=== PATIENT | female | born 1990 | race Caucasian/White ===

== ENCOUNTER → 2017-06-08 | Outpatient (CLI) | payer BC, OTHER, MEDICAID ==
--- NOTE | 2017-06-08 13:53 | Diagnostic Imaging Report ---
INDICATION: survey. TECHNIQUE: Multiple real-time grayscale images were obtained over the gravid uterus. COMPARISON: None. FINDINGS: There is a single live fetus in a variable presentation. The placenta is posterior. The amniotic fluid volume is normal. heart rate was recorded at 138 beats per minute. Cervical length is 4.4 cm. The kidneys, bladder, and stomach are unremarkable. Intracranial structures are unremarkable. There is a four-chamber heart. There is a three-vessel cord with normal cord insertion. The spine is unremarkable. Biometrical measurements are as follows: Biparietal 4.89 cm, age 20 weeks 6 days. Head circumference 18.41 cm, age 20 weeks 6 days. Abdominal circumference 15.47 cm, age 20 weeks 5 days. Femur length 3.15 cm, age 19 weeks 6 days. Sonographic estimate age: 20 weeks 4 days. Sonographic estimated date of delivery: 10/22/2017. Estimated Weight: 346 gm (+/- 51 gm). LMP percentile: 15%. heart rate: 138 beats per minute. number: 1 of 1. IMPRESSION: Single live IUP at approximately 20 weeks 4 days gestational age. The estimated date of confinement sonographically is 10/22/2017. Dictated by: Dictated on workstation # [id number]
== END ==
LOC: RAD 11:20
PROVIDERS: ATTEND Obstetrics & Gynecology
DX: Z34.92 Encounter for supervision of normal pregnancy, unspecified, second trimester (principal); Z3A.20 20 weeks gestation of pregnancy
CPT/HCPCS: 76805

== ENCOUNTER 2017-10-02 14:24 | Outpatient (CLI) | payer BC, OTHER, MEDICAID ==
[~2017-10-02] VITALS: Ht 157.5 cm; Wt 76.2 kg
[2017-10-02 14:30] VITALS: BP 103/63
[2017-10-02 15:00] VITALS: BP 101/55
[2017-10-02] MEDS ORDERED: PREN1TAB86 PO (15:15)
[2017-10-02 15:30] VITALS: BP 99/59
[2017-10-02 16:00] VITALS: BP 103/58
[2017-10-03] MEDS ORDERED: DIBU30OI TOP (01:38)
[2017-10-03] MEDS ORDERED: Benzocaine/Menthol TP (01:38)
[2017-10-03] MEDS ORDERED: IBUP-844 PO (01:38)
[2017-10-03] MEDS ORDERED: ACHD5005 PO (01:38)
[2017-10-03] MEDS ORDERED: FERR325T18 PO (01:38)
[2017-10-03] MEDS ORDERED: DOCU100C37 PO (01:38)
--- NOTE | 2017-10-05 13:50 | Physician Query-Final Dx ---
ROSAURA TRIMBLE 10/05/17 1350: Clinic Account Progress/Dx Physician Query: Please give diagnosis Date of Service Oct 02, 2017 at 14:24 CASSANDRA CURTIS DO 10/06/17 1732: Clinic Account Progress/Dx DIAGNOSIS: Diagnosis 37 week IUP Prolonged latent phase labor ROSAURA TRIMBLE Oct 05, 2017 13:50 CASSANDRA CURTIS DO Oct 06, 2017 17:32
== END 2017-10-02 16:10 | disposition home or self-care (01) ==
LOC: WSo 14:24 → LDRP 14:25 → WSo 16:10
PROVIDERS: ATTEND Obstetrics & Gynecology
DX: O62.0 Primary inadequate contractions (principal); Z3A.37 37 weeks gestation of pregnancy
CPT/HCPCS: 99213

== ENCOUNTER 2017-10-03 00:09 | Inpatient (IN) | payer BC, MEDICAID, OTHER ==
[~2017-10-03] VITALS: Ht 157.5 cm; Wt 77.1 kg
[2017-10-03] VITALS (10 sets, daily range): BP systolic 90–119; BP diastolic 55–64
[~2017-10-03 00:09] MED LIST: PREN1TAB86 PO
[2017-10-03] MEDS ORDERED: D5 LR IV SOLUTION 1,000 ML IV SCH (00:27)
[2017-10-03] MEDS ORDERED: LIDOCAINE/EPI 2% 1:200,00 (XYLOCAINE) 10 ML VIAL ONE (00:39)
[2017-10-03] MEDS ORDERED: OXYTOCIN/NORMAL SALINE 500 ML IV ONE (00:39)
[2017-10-03 00:48] LABS: BASOPHILS % (AUTO) 0 % (0-10); EOSINOPHILS # (AUTO) 0.2 10^3/uL (0.0-0.3); EOSINOPHILS % (AUTO) 2 % (0-10); HEMATOCRIT 32 % (35-52); HEMOGLOBIN 10.6 G/DL (11.5-16.0); LYMPHOCYTES # (AUTO) 1.7 X 10^3 (1.0-4.0); LYMPHOCYTES % (AUTO) 13 % (12-44); MEAN CORPUSCULAR HEMOGLOBIN 29 PG (25-34); MEAN CORPUSCULAR HGB CONC 33 G/DL (32-36); MEAN CORPUSCULAR VOLUME 87 FL (80-99); MEAN PLATELET VOLUME 10.6 FL (7.4-10.4); MONOCYTES # (AUTO) 1.2 X 10^3 (0.0-1.0); MONOCYTES % (AUTO) 9 % (0-12); NEUTROPHILS # (AUTO) 10.6 X 10^3 (1.8-7.8); NEUTROPHILS % (AUTO) 77 % (42-75); PLATELET COUNT 252 10^3/uL (130-400); RED BLOOD COUNT 3.64 10^6/uL (4.35-5.85); RED CELL DISTRIBUTION WIDTH 14.6 % (10.0-14.5); WHITE BLOOD COUNT 13.8 10^3/uL (4.3-11.0)
[2017-10-03] MEDS: OXYTOCIN/NORMAL SALINE 500 ML IV SCH ×2 (01:15→01:51)
[2017-10-03] MEDS ORDERED: HYDROcodone/APAP 5 MG/325 MG (LORTAB) TAB PO PRN (01:30)
[2017-10-03] MEDS ORDERED: MEASLES,MUMPS,RUBELLA 1 EA INJ SQ ONE (01:30)
[2017-10-03] MEDS ORDERED: DIBUCAINE (NUPERCAINAL) 1% OINT 30 GM TOP PRN (01:30)
[2017-10-03] MEDS ORDERED: TETANUS,DIPTH,PERTUSS P/F (BOOSTRIX) 0.5 ML VIAL IM ONE (01:30)
--- NOTE | 2017-10-03 01:33 | OB Labor & Delivery Record ---
L&D History Date of Service Date of Service: Oct 03, 2017 History Expected Date of Delivery: Oct 19, 2017 Gestational Age in Weeks: 37 Hx : 5 Complications Events: Routine care Operative Indications (Cesarea: N/A-Vaginal Delivery Intrapartal Events: None L&D Stage1 Stage One Onset of Labor - Date: Oct 03, 2017 Monitors and Tracing Monitor Mode: External Monitor Accelerations: Uniform Monitor Decelerations: None Station: -1 Longterm Variability: Average (6-10) Presentation: Vertex Rupture of Membranes Spontaneous Ruture of Membrane: No Amniotic Membrane Rupture Time: 00:45 Amniotic Membrane Fluid Desc.: Clear Vaginal Bleeding Description: Normal Show Progress/Notes Patient presented 6 cm and rapidly progressed to complete with bulging membranes in about an hour. AROM performed, and pushing without analgesia was started. L&D Stage2 Stage Two Stage II Date: Oct 03, 2017 Monitors and Tracing Monitor Accelerations: Uniform Monitor Decelerations: Variable Longterm Variability: Average (6-10) Short Term Variability: Present Position: Right Occiput Anterior Presentation: Vertex Cord Descript/Complications Cord Vessel Description: 3 Vessels Delivery Type Delivery Method: Spontaneous Vaginal Anterior Shoulder: Right Episiotomy/Perineal Laceration Laceraction(s)/Extensions: Yes Episiotomy Description: Midline (midline perineal lac, repaired using 3-0 vicryl rapide in usual fashion) Condition of Infant Delivery 1 minute Comment: 9 5 minute Comment: 9 Notes Live female infant weight 7lbs 9 oz Condition of Infant Condition of Infant: Living Exam: No Observed Abnormalities Resuscitation Resuscitation: N/A - Spontaneous Resp L&D Stage3 Stage Three Stage III Date: Oct 03, 2017 Pictocin Pitocin Administration Comment: 30 mu wide open at delivery of placenta Placenta Delivery Placenta Delivery: Spontaneous Delivery Summary Summary Estimated blood loss (mL): 400 Attending at delivery: Cassandra Curtis DO Condition of Delivery Examined: Cervix Examined, Uterus Explored Post Hemorrhage: No Condition of Mother stable Condition of Infant (s) stable CASSANDRA CURTIS DO Oct 03, 2017 1:33 am
--- NOTE | 2017-10-03 01:36 | History & Physical-OB ---
OB - Chief Complaint & HPI Date/Time Date of Admission: Date of Admission: Oct 03, 2017 at 12:25 am Time Seen by Provider: 00:40 Chief Complaint/History OB-Reason for Admission/Chief: Onset of Labor Hx : 5 Hx Para: 1 Expected Date of Delivery: Oct 19, 2017 Gestational Age in Weeks: 37 Gestational Age in Days: 5 Other reason for admission: Patient presented in rapid labor at 6 cm at admission to 8 in 45 min Admission Nurse Assessment Rev: Yes History of Labs A pos Antibody neg RI RPR NR HBsAg NR HIV NR GC neg GBS neg Allergies and Home Medications Allergies Coded Allergies: No Known Drug Allergies (Unverified , 10/02/17) Home Medications Vit W-Ca,Fe,FA(<1 mg) 1 Each Tablet, 1 TAB PO DAILY, (Reported) Patient Home Medication List Home Medication List Reviewed: Yes OB - History Hx of Present Care: Yes Ultrasounds: Normal mid trimester US Obstetrical Complications: None Medical Complications: None Obstetrical History Hx : 5 Patient Past Medical History n/a OB - Admission Exam Physical Exam HEENT: NCAT Heart: Rhythm Normal Lungs: Clear Abdomen: Gravid Extremities: Normal Reflexes: Normal Cervical Dilatation: 9cm Effacement: 100% Station: 0 Membranes: Intact (ruptured at time of exam) Amniotic Fluid: Clear Heart Rate: 120's Accelerations: Accelerations Present Decelerations: No Decelerations Short Term Variability: Present Alf Variability: Average (6-25) Contractions on Admission: < 5 Minutes Apart Intensity: Firm Labs Laboratory Tests Test 10/03/17 00:20 Range/Units White Blood Count 13.8 H 4.3-11.0 10^3/uL Red Blood Count 3.64 L 4.35-5.85 10^6/uL Hemoglobin 10.6 L 11.5-16.0 G/DL Hematocrit 32 L 35-52 % Mean Corpuscular Volume 87 80-99 FL Mean Corpuscular Hemoglobin 29 25-34 PG Mean Corpuscular Hemoglobin Concent 33 32-36 G/DL Red Cell Distribution Width 14.6 H 10.0-14.5 % Platelet Count 252 130-400 10^3/uL Mean Platelet Volume 10.6 H 7.4-10.4 FL Neutrophils (%) (Auto) 77 H 42-75 % Lymphocytes (%) (Auto) 13 12-44 % Monocytes (%) (Auto) 9 0-12 % Eosinophils (%) (Auto) 2 0-10 % Basophils (%) (Auto) 0 0-10 % Neutrophils # (Auto) 10.6 H 1.8-7.8 X 10^3 Lymphocytes # (Auto) 1.7 1.0-4.0 X 10^3 Monocytes # (Auto) 1.2 H 0.0-1.0 X 10^3 Eosinophils # (Auto) 0.2 0.0-0.3 10^3/uL Basophils # (Auto) 0.0 0.0-0.1 10^3/uL OB - Assessment/Plan/Diagnosis Assessment Assessment: active labor Admission Dx 37.5 week IUP Active labor GBS neg Admission Status: Inpatient Order (span 2 midnights) Reason for Inpatient Admission: Term labor Plan Plan: Expectant Management Induction Method: AROM Other Plan Anticipate imminent delivery CASSANDRA CURTIS DO Oct 03, 2017 1:36 am
[2017-10-03] MEDS ORDERED: FERR325T18 PO (01:38)
[2017-10-03] MEDS ORDERED: DOCU100C37 PO (01:38)
[2017-10-03] MEDS ORDERED: IBUP-844 PO (01:38)
[2017-10-03] MEDS ORDERED: ACHD5005 PO (01:38)
[2017-10-03] MEDS ORDERED: Benzocaine/Menthol TP (01:38)
[2017-10-03] MEDS ORDERED: DIBU30OI TOP (01:38)
--- NOTE | 2017-10-03 01:39 | Discharge Inst-Women's Service ---
Discharge Inst-Women's Serv Depart Medication/Instructions New, Converted or Re-Newed RX: RX on Chart Consults/Follow Up Additional Follow Up: Yes Orders/Referrals Dr. Curtis in 6 weeks Activity Activity: Activity as Tolerated Driving Instructions: No Driving for 1 Week NO SMOKING: NO SMOKING Nothing Inside Vagina: No Douching, No [place], No Tampons Diet Discharge Diet: No Restrictions Symptoms to Report to : Bleeding Excessive, Pain Increased, Fever Over 101 Degrees F, Vaginal Bleeding Increase, Questions/Concerns For Any Problems or Questions: Contact Your Physician Skin/Wound Care Bathing Instructions: Shower (or sitz baths x 2 weeks) CASSANDRA CURTIS DO Oct 03, 2017 1:38 am
[2017-10-03] MEDS: IBUPROFEN 600 MG (MOTRIN) TAB PO SCH ×4 (01:51→22:56)
[2017-10-03] MEDS: BENZOCAINE/MENTHOL (DERMOPLAST) 56 ML CAN TP PRN (02:31)
[2017-10-03] MEDS: WITCH HAZEL(TUCKS) 40 EA JAR TOP PRN (02:31)
[2017-10-03] MEDS ORDERED: CATHETER FLUSH 10 ML SYR IV SCH ×2 (06:00)
[2017-10-03] MEDS: PRENATAL VITAMIN 1 EA TAB PO SCH (09:57)
[2017-10-03] MEDS: FERROUS SULF 325 MG (IRON) TAB PO SCH (09:57)
[2017-10-03] MEDS: DOCUSATE SODIUM 100 MG (COLACE) CAP PO SCH ×2 (09:57→19:34)
[2017-10-03] MEDS ORDERED: CALCIUM CARBONATE 500 MG (TUMS) TAB.CHEW ONE (19:06)
[2017-10-03] MEDS ORDERED: CALCIUM CARBONATE 500 MG (TUMS) TAB.CHEW PO PRN (20:00)
[2017-10-03] MEDS ORDERED: CALCIUM CARBONATE 500 MG (TUMS) TAB.CHEW PO SCH (20:00)
[2017-10-04 01:34] VITALS: BP 99/60
[2017-10-04 02:33] LABS: BASOPHILS % (AUTO) 0 % (0-10); EOSINOPHILS # (AUTO) 0.5 10^3/uL (0.0-0.3); EOSINOPHILS % (AUTO) 4 % (0-10); HEMATOCRIT 29 % (35-52); HEMOGLOBIN 9.3 G/DL (11.5-16.0); LYMPHOCYTES # (AUTO) 2.3 X 10^3 (1.0-4.0); LYMPHOCYTES % (AUTO) 18 % (12-44); MEAN CORPUSCULAR HEMOGLOBIN 29 PG (25-34); MEAN CORPUSCULAR HGB CONC 32 G/DL (32-36); MEAN CORPUSCULAR VOLUME 89 FL (80-99); MEAN PLATELET VOLUME 10.3 FL (7.4-10.4); MONOCYTES # (AUTO) 1.2 X 10^3 (0.0-1.0); MONOCYTES % (AUTO) 10 % (0-12); NEUTROPHILS # (AUTO) 8.8 X 10^3 (1.8-7.8); NEUTROPHILS % (AUTO) 69 % (42-75); PLATELET COUNT 234 10^3/uL (130-400); RED BLOOD COUNT 3.23 10^6/uL (4.35-5.85); RED CELL DISTRIBUTION WIDTH 14.9 % (10.0-14.5); WHITE BLOOD COUNT 12.8 10^3/uL (4.3-11.0)
[2017-10-04] MEDS ORDERED: TETANUS,DIPTH,PERTUSS P/F (BOOSTRIX) 0.5 ML VIAL IM ONE (08:14)
[2017-10-04] MEDS ORDERED: MEASLES,MUMPS,RUBELLA 1 EA INJ ONE (08:14)
[2017-10-04] MEDS: DOCUSATE SODIUM 100 MG (COLACE) CAP PO SCH (08:40)
[2017-10-04] MEDS: PRENATAL VITAMIN 1 EA TAB PO SCH (08:40)
[2017-10-04] MEDS: IBUPROFEN 600 MG (MOTRIN) TAB PO SCH ×2 (08:40→15:45)
[2017-10-04] MEDS: FERROUS SULF 325 MG (IRON) TAB PO SCH (08:40)
[2017-10-04] MEDS: BENZOCAINE/MENTHOL (DERMOPLAST) 56 ML CAN TP PRN (08:45)
[2017-10-04] MEDS: WITCH HAZEL(TUCKS) 40 EA JAR TOP PRN (08:46)
[2017-10-04 08:47] VITALS: BP 104/65
--- NOTE | 2017-10-04 11:12 | Postpartum Progress Note ---
Note Note Day # 1 Subjective: Patient is without complaints. Ambulating, voiding. Tolerating a regular diet without nausea or vomiting. Normal lochia. Pain is well controlled with oral pain medications. Objective: Vital Sign - Last 24 Hours 10/03/17 10/03/17 10/04/17 16:10 19:34 01:34 Temp 98.1 98.5 98.4 Pulse 102 82 71 Resp 20 20 18 B/P (MAP) 95/59 (71) 97/63 (74) 99/60 (73) Pulse Ox 97 97 O2 Delivery Room Air Room Air Room Air Laboratory Tests Test 10/04/17 01:58 Range/Units White Blood Count 12.8 H 4.3-11.0 10^3/uL Red Blood Count 3.23 L 4.35-5.85 10^6/uL Hemoglobin 9.3 L 11.5-16.0 G/DL Hematocrit 29 L 35-52 % Mean Corpuscular Volume 89 80-99 FL Mean Corpuscular Hemoglobin 29 25-34 PG Mean Corpuscular Hemoglobin Concent 32 32-36 G/DL Red Cell Distribution Width 14.9 H 10.0-14.5 % Platelet Count 234 130-400 10^3/uL Mean Platelet Volume 10.3 7.4-10.4 FL Neutrophils (%) (Auto) 69 42-75 % Lymphocytes (%) (Auto) 18 12-44 % Monocytes (%) (Auto) 10 0-12 % Eosinophils (%) (Auto) 4 0-10 % Basophils (%) (Auto) 0 0-10 % Neutrophils # (Auto) 8.8 H 1.8-7.8 X 10^3 Lymphocytes # (Auto) 2.3 1.0-4.0 X 10^3 Monocytes # (Auto) 1.2 H 0.0-1.0 X 10^3 Eosinophils # (Auto) 0.5 H 0.0-0.3 10^3/uL Basophils # (Auto) 0.0 0.0-0.1 10^3/uL Physical Exam: General - Alert and oriented, no apparent distress Abdomen - Soft, appropriately tender to palpation, non-distended, fundus firm at umbilicus Extremities - no edema, negative Blayne's bilaterally Assessment: PPD 1 NVD Acute blood loss anemia Plan: Routine care. Encourage breast feeding. Encourage ambulation. Ferrous sulfate supplementation. Plan for discharge today Vitals - Labs Vital Signs - I&O Vital Signs Date Time Temp Pulse Resp B/P (MAP) Pulse Ox O2 Delivery O2 Flow Rate FiO2 10/04/17 01:34 98.4 71 18 99/60 (73) 97 Room Air 10/03/17 19:34 98.5 82 20 97/63 (74) 97 Room Air 10/03/17 16:10 98.1 102 20 95/59 (71) Room Air Labs Laboratory Tests 10/04/17 01:58: White Blood Count 12.8H, Red Blood Count 3.23L, Hemoglobin 9.3L, Hematocrit 29L , Mean Corpuscular Volume 89, Mean Corpuscular Hemoglobin 29, Mean Corpuscular Hemoglobin Concent 32, Red Cell Distribution Width 14.9H, Platelet Count 234, Mean Platelet Volume 10.3, Neutrophils (%) (Auto) 69, Lymphocytes (%) (Auto) 18 , Monocytes (%) (Auto) 10, Eosinophils (%) (Auto) 4, Basophils (%) (Auto) 0, Neutrophils # (Auto) 8.8H, Lymphocytes # (Auto) 2.3, Monocytes # (Auto) 1.2H, Eosinophils # (Auto) 0.5H, Basophils # (Auto) 0.0 CASSANDRA CURTIS DO Oct 04, 2017 11:12 am
[2017-10-04 15:35] VITALS: BP 102/59
--- NOTE | 2017-10-06 12:40 | Physician Query-Final Dx ---
LEX ROMAN 10/06/17 1240: Final Diagnosis Give Final Diagnosis Please give Final Diagnosis CASSANDRA CURTIS DO 10/06/17 1733: Final Diagnosis Give Final Diagnosis PPD 1 NVD LEX ROMAN Oct 06, 2017 12:40 CASSANDRA CURTIS DO Oct 06, 2017 17:33
== END 2017-10-04 17:30 | disposition home or self-care (01) | DRG 775 ==
LOC: WSo 00:09 → LDRP 00:10 → WSo 00:24 → LDRP 00:25
PROVIDERS: ADMIT Obstetrics & Gynecology; ATTEND Obstetrics & Gynecology
PROC: 10E0XZZ Delivery of Products of Conception, External Approach (ICD-10-PCS; principal; 2017-10-03)
PROC: 0HQ9XZZ Repair Perineum Skin, External Approach (ICD-10-PCS; principal; 2017-10-03)
DX: O62.3 Precipitate labor (principal); O70.0 First degree perineal laceration during delivery; O99.03 Anemia complicating the puerperium; D64.9 Anemia, unspecified; Z3A.37 37 weeks gestation of pregnancy; Z37.0 Single live birth; Z23 Encounter for immunization
CPT/HCPCS: 36415; 85025; 86850; 86900; 86901; 90707; 90715; 99212